=== PATIENT | female | born 1950 | race Caucasian/White ===

== ENCOUNTER 2022-07-06 06:49 | Day surgery (SDC) | payer OTHER ==
[~2022-07-06] VITALS: Ht 149.9 cm; Wt 72.6 kg
[2022-07-06] MEDS ORDERED: CLINDAMYCIN PHOS 600 MG/ D5W 50 ML PREMIX IV ONE (07:00)
[2022-07-06] MEDS ORDERED: ONDANSETRON HCL 4 MG/2 ML VIAL IVP ONE (09:17)
[2022-07-06] MEDS ORDERED: ePHEDrine sulfate 50 MG/ML VIAL IVP ONE (09:17)
[2022-07-06] MEDS ORDERED: LR 1,000 ML IV.SOLN IV ONE (09:17)
[2022-07-06] MEDS ORDERED: fentaNYL CITRATE/PF 100 MCG/2 ML AMP IVP ONE (09:17)
[2022-07-06] MEDS ORDERED: PROPOFOL 200MG/ 20ML VIAL (DIPRIVAN) IV ONE (09:17)
[2022-07-06] MEDS ORDERED: METOCLOPRAMIDE HCL 10 MG/2 ML VIAL IVP ONE (09:17)
[2022-07-06] MEDS ORDERED: NS IRRIG SOLN 1000 ML IR ONE (09:17)
[2022-07-06] MEDS ORDERED: SEVOFLURANE 15 MIN GAS INH ONE (09:17)
[2022-07-06] MEDS ORDERED: SUGAMMADEX SODIUM 200 MG/2 ML VIAL IV ONE (09:17)
[2022-07-06] MEDS ORDERED: NS 1000 ML IV.SOLN IV ONE (09:17)
[2022-07-06] MEDS ORDERED: ONDANSETRON HCL 4 MG/2 ML VIAL IVP PRN ×2 (10:30→11:15)
[2022-07-06] MEDS ORDERED: MORPHINE 4 MG INJ. 4 MG/ML VIAL IVP PRN ×2 (10:30)
[2022-07-06] MEDS ORDERED: ONDANSETRON 4 MG ODT TAB PO PRN (11:15)
[2022-07-06] MEDS: MORPHINE 4 MG INJ. 4 MG/ML VIAL ONE ×2 (11:15→11:30)
[2022-07-06] MEDS ORDERED: ACETAMINOPHEN/CODEINE 300 MG-30 MG TABLET PO PRN (11:15)
[2022-07-06] MEDS ORDERED: ACETAMINOPHEN 500 MG TABLET PO PRN (11:15)
[2022-07-06] MEDS ORDERED: NALOXONE HCL 0.4 MG/ML AMP (NARCAN) IVP PRN (11:15)
[2022-07-06] MEDS ORDERED: ACETAMINOPHEN/CODEINE 300 MG-30 MG TABLET ONE (12:44)
[2022-07-06 14:17] VITALS: BP_SYST 152
== END 2022-07-06 14:00 | disposition home or self-care (01) ==
LOC: SDS 06:49 → SMU 06:53 → SDS 14:00
PROVIDERS: ATTEND Otolaryngology
DX: J32.0 Chronic maxillary sinusitis (principal); I10 Essential (primary) hypertension; E11.9 Type 2 diabetes mellitus without complications; K21.9 Gastro-esophageal reflux disease without esophagitis; Z20.822 Contact with and (suspected) exposure to COVID-19; Z79.899 Other long term (current) drug therapy
CPT/HCPCS: 36415; 31267; 71045; 82962; 88305; 88311; 93005; U0003; J3490 ×2; J2765; J2405; J2704; J3010; J2270; J7120; J7030

== ENCOUNTER 2022-07-12 18:03 | Emergency (ER) | payer OTHER ==
[~2022-07-12] VITALS: Ht 149.9 cm; Wt 86.2 kg
[2022-07-12 19:13] VITALS: BP_SYST 129
--- NOTE | 2022-07-12 19:18 | NUR ---
PT HERE ACCOMPANIED BY HER FAMILY MEMBER C/O FRONTAL HEADACHES X6 DAYS WITH NAUSEA. PT STATED THAT PAIN SRATED AFTER HER SINUS SURGERY ON 08/06/22, DENIES V/D, DENIES DIZZINESS AND DENIES BLURRY VISION PMH:HTN,DM PT AAOX4, NO SOB NOTED AND NAD. PENDING MD ESTRELLA
--- NOTE | 2022-07-12 19:23 | NUR ---
PT SEEN AND EXAMINE BY DR. STAFFORD
[2022-07-12] MEDS ORDERED: PSEUDOEPHEDRINE HCL 30 MG TABLET PO ONE (19:30)
[2022-07-12] MEDS ORDERED: KETOROLAC TROMETHAMINE 30 MG VIAL IM ONE (19:30)
[2022-07-12 19:47] LABS: BASOPHILS # (AUTO) 0.1 K/uL (0.0-0.2); BASOPHILS % (AUTO) 0.9 % (0.0-2.0); EOSINOPHILS # (AUTO) 0.1 K/uL (0.0-0.4); EOSINOPHILS % (AUTO) 0.6 % (0.0-4.0); HEMATOCRIT 38.6 % (36-48); HEMOGLOBIN 12.8 g/dL (12.0-16.0); LYMPHOCYTES # (AUTO) 3.4 K/uL (1.0-5.5); LYMPHOCYTES % (AUTO) 26.8 % (20.5-51.5); MEAN CORPUSCULAR HEMOGLOBIN 30 pg (27-31); MEAN CORPUSCULAR HGB CONC 33 % (32-36); MEAN CORPUSCULAR VOLUME 89 fL (79.0-98.0); MONOCYTES # (AUTO) 0.8 K/uL (0.0-1.0); NEUTROPHILS # (AUTO) 8.3 K/uL (1.8-7.7); NEUTROPHILS % (AUTO) 65.7 % (40.0-70.0); PLATELET COUNT (AUTO) 239 K/uL (130-430); RED BLOOD CELL COUNT(AUTO) 4.33 MIL/uL (4.2-6.2); RED CELL DISTRIBUTION WIDTH 14.2 % (9.0-15.0); WHITE BLOOD COUNT (AUTO) 12.7 K/uL (4.8-10.8)
[2022-07-12 19:56] LABS: ANION GAP 5 (5-15); CALCIUM 9.7 mg/dL (8.4-11.0); CHLORIDE 103 mmol/L (98-107); CREATININE 0.85 mg/dL (0.55-1.30); GLUCOSE 206 mg/dL (70-99); POTASSIUM 4.3 mmol/L (3.5-5.1); UREA NITROGEN, BLOOD 14 mg/dL (8-21)
[2022-07-12 20:02] LABS: ALANINE AMINOTRANSFERASE 56 U/L (12-78); ALBUMIN 3.2 g/dL (3.4-4.8); ASPARTATE AMINOTRANSFERASE 28 U/L (10-37); C-REACTIVE PROTEIN QUANT 5.2 mg/dL (0-0.5); TOTAL BILIRUBIN 0.2 mg/dL (0.0-1.0)
--- NOTE | 2022-07-12 20:11 | NUR ---
Medication administered as ordered.
[2022-07-12] MEDS ORDERED: HYDR-3917 PO (20:21)
[2022-07-12] MEDS ORDERED: IBUP-1969 PO (20:21)
[2022-07-12 20:22] LABS: ERYTHROCYTE SEDIMENTATION RATE 32 MM/HR (0-20)
--- NOTE | 2022-07-12 21:18 | NUR ---
Patient given written and verbal discharge instructions and verbalizes understanding. ER MD Ruiz discussed with patient the results and treatment provided. Patient in stable condition. ID arm band removed. Rx of Switchback and Ibuprofen sent to preferred pharmacy. Patient educated on pain management and to follow up with PMD. Opportunity for questions provided and answered.
[2022-07-12 21:19] VITALS: BP_SYST 133
== END 2022-07-12 20:41 | disposition home or self-care (01) ==
LOC: SED 18:03
DX: R51.9 Headache, unspecified (principal); R11.0 Nausea; E10.9 Type 1 diabetes mellitus without complications; Z79.899 Other long term (current) drug therapy
CPT/HCPCS: 99284; 70450; 80053; 85025; 85651; 86140; 36415; 76376; 96372; J1885

== ENCOUNTER 2022-08-10 15:26 | Emergency (ER) | payer OTHER ==
[~2022-08-10] VITALS: Ht 149.9 cm; Wt 75.3 kg
[~2022-08-10 15:26] MED LIST: HYDR-3917 PO; IBUP-1969 PO
[2022-08-10 16:33] VITALS: BP_SYST 145
[2022-08-10] MEDS ORDERED: KETOROLAC TROMETHAMINE 60 MG/2 ML VIAL IM ONE (21:00)
[2022-08-10] MEDS ORDERED: cefTRIAXone 1 GM in LIDOCAINE 1%, 20 ML MDV 2.1 ML IM ONE (21:00)
[2022-08-10] MEDS ORDERED: LEVO-62 PO (22:52)
[2022-08-10 23:13] VITALS: BP_SYST 140
== END 2022-08-10 23:13 | disposition home or self-care (01) ==
LOC: SED 15:26
DX: J01.90 Acute sinusitis, unspecified (principal); R51.9 Headache, unspecified; E10.9 Type 1 diabetes mellitus without complications; Z79.899 Other long term (current) drug therapy
CPT/HCPCS: 99284; 96372; J0696; J1885; J2001